=== PATIENT | male | born 1950 | race Caucasian/White ===

== ENCOUNTER 2017-04-05 23:30 | Observation (INO) ==
[2017-04-06] MEDS ORDERED: ACETAMINOPHEN 325 MG TABLET PO PRN (02:34)
[2017-04-06] MEDS ORDERED: INFLUENZA VIRUS VACCINE 0.5 ML SYRINGE IM ONE (04:10)
[2017-04-06 07:12] LABS: Basophils # 0.1 10*3/uL (0.0-0.2); Eosinophils # 0.4 10*3/uL (0.0-0.87); Eosinophils % 4.8 % (0.00-10.9); Hemoglobin 15.5 GM/DL (14.0-18.0); Immature Granulocytes % 0.1 %; Immature Granulocytes Absolute 0.01 #; Lymphocytes # 1.5 10*3/uL (1.4-4.0); Lymphocytes % 20.8 % (21.2-54.2); Mean Corpuscular HGB Conc 34.4 GM/DL (32-36); Mean Corpuscular Hemoglobin 32 PG (27-34); Mean Corpuscular Volume 92.2 FL (87-102); Monocytes # 0.5 10*3/uL (0.11-0.8); Monocytes % 6.5 % (1.7-12.7); Neutrophils # 4.9 10*3/uL (1.4-7.4); Neutrophils % 66.8 % (38.7-73.9); Platelet Count 235 T/CUMM (130-400); Red Blood Count 4.88 MC/CUMM (3.8-5.5); Red Cell Distribution Width 12.6 % (9.3-17.3); White Blood Count 7.4 T/CUMM (4-12)
[2017-04-06 07:25] LABS: INR 1.2; PT Patient Result 12.1 SECS
[2017-04-06 07:45] LABS: Albumin 3.7 G/DL (3.4-5.0); Bilirubin,Total 0.6 MG/DL (0.2-1.0); Calcium 8.8 MG/DL (8.5-10.1); Osmolality,Calculated 277.4 MOS/KG (273-304); Potassium 4.2 MMOL/L (3.5-5.1); Total Protein 6.7 G/DL (6.4-8.3)
[2017-04-06] MEDS ORDERED: PANTOPRAZOLE 40 MG TABLET PO SCH (09:00)
[2017-04-06] MEDS: DILTIAZEM CD 240 MG CAPSULE PO SCH (09:03)
[2017-04-06] MEDS: PANTOPRAZOLE 40 MG TABLET PO SCH (09:03)
[2017-04-06] MEDS: QUINAPRIL 5 MG TABLET PO SCH (09:03)
[2017-04-06] MEDS: ASPIRIN EC 81 MG TABLET PO SCH (09:03)
[2017-04-06] MEDS: ENOXAPARIN 100 MG/ML SYRINGE SUBCUT SCH ×2 (09:03→20:47)
[2017-04-06] MEDS: LORATADINE 10 MG TABLET PO SCH (09:04)
[2017-04-06] MEDS ORDERED: WARFARIN 5 MG TABLET PO SCH (18:00)
[2017-04-07] MEDS: ENOXAPARIN 100 MG/ML SYRINGE SUBCUT SCH (09:09)
[2017-04-07] MEDS: DILTIAZEM CD 240 MG CAPSULE PO SCH (09:09)
[2017-04-07] MEDS: QUINAPRIL 5 MG TABLET PO SCH (09:09)
[2017-04-07] MEDS: LORATADINE 10 MG TABLET PO SCH (09:10)
[2017-04-07] MEDS: ASPIRIN EC 81 MG TABLET PO SCH (09:10)
[2017-04-07] MEDS: PANTOPRAZOLE 40 MG TABLET PO SCH (09:10)
[2017-04-07 11:13] VITALS: BP 134/84
[2017-04-10 15:36] LABS: Protein S Activity Plasma 125 % (65 - 160)
[2017-04-10 16:01] LABS: Protein C Activity Plasma 82 % (70 - 150)
[2017-04-10 17:01] LABS: F5DNA Reviewed By SEE COMMENTS; Factor V Leiden (R506Q) Mutati Negative (Negative)
== END 2017-04-07 13:05 | disposition home or self-care (01) ==
LOC: N.ED 23:30 → N.EDINP 23:30 → N.5E 04-06 03:22
PROVIDERS: ADMIT Internal Medicine; ATTEND Internal Medicine